=== PATIENT | male | born 1950 | race Caucasian/White ===

== ENCOUNTER → 2017-04-18 | Outpatient (CLI) | payer SELFPAY | END | disposition home or self-care (01) | LOC: YCFC.O 10:59 | DX: I10 Essential (primary) hypertension (principal) ==

== ENCOUNTER → 2018-06-06 | Outpatient (CLI) | payer MEDICARE | LOC: LAB.O 08:29 | PROVIDERS: ATTEND Family Medicine | DX: I10 Essential (primary) hypertension (principal); R35.1 Nocturia ==

== ENCOUNTER → 2019-06-09 | Outpatient (CLI) | payer MEDICARE | LOC: LAB.O 08:16 | PROVIDERS: ATTEND Family Medicine | DX: I10 Essential (primary) hypertension (principal); R97.20 Elevated prostate specific antigen [PSA]; R35.1 Nocturia; R53.83 Other fatigue; Z13.220 Encounter for screening for lipoid disorders ==

== ENCOUNTER → 2019-12-08 | Outpatient (CLI) | payer MEDICARE | LOC: LAB.O 09:01 | PROVIDERS: ATTEND Family Medicine | DX: R53.83 Other fatigue (principal); I10 Essential (primary) hypertension; R97.20 Elevated prostate specific antigen [PSA]; D51.1 Vitamin B12 deficiency anemia due to selective vitamin B12 malabsorption with proteinuria ==

== ENCOUNTER → 2019-12-22 | Outpatient (CLI) | payer MEDICARE | LOC: YCFC.O 08:29 | PROVIDERS: ATTEND Family Medicine | DX: I10 Essential (primary) hypertension (principal); R53.83 Other fatigue ==

== ENCOUNTER 2020-08-05 11:45 | Observation (INO) | payer MEDICARE ==
--- NOTE | 2020-08-05 11:46 | ED.PDOC ---
History of Present Illness - General Stated Complaint: Chest pain Time Seen by Provider: 08/05/20 11:46 Source: patient Exam Limitations: no limitations - History of Present Illness Initial Comments: Patient reported Lightheadedness and chest pain onset 1 hour ago while working up on a roof.The pain was located in the midsternal area and did not radiate. It was burning in nature. It lasted about 30 minutes and then has substantially subsided. Current discomfort is about 2/10 at present. Patient did not have any shortness of breath or diaphoresis. He did not have any slurred speech extremity weakness or Facial droop to suggest CVA. Patient has had a similar episode in the past but it was not formally evaluated by a photocopying equipment mechanic. He denies history of known coronary disease or diabetes he does have a history of hypertension. Patient notes he is taking magnesium supplements. His father from a heart attack. Timing/Duration: 1 hour Severity: moderate Improving Factors: nothing Worsening Factors: nothing Associated Symptoms: cough - Present and unchanged for the last 2 years. Not productiveAssociated with postnasal drip. Allergies/Adverse Reactions: Allergies Prednisone Allergy (Verified 11/18/15 00:06) Home Medications: Ambulatory Orders Lisinopril 20 mg PO DAILY 12/15/15 amLODIPine BESYLATE [Norvasc] 5 mg PO DAILY 12/15/15 Review of Systems - Review of Systems Constitutional: States: no symptoms reported EENTM: States: other - Chronic postnasal drip Respiratory: States: cough - Chronic mostly nonproductive cough Cardiology: States: see HPI Gastrointestinal/Abdominal: States: no symptoms reported Genitourinary: States: other - Chronic urinary retention requiring self- catheterization several times per day Musculoskeletal: States: no symptoms reported Skin: States: other - Chronic rash on both upper extremities present 20 years Neurological: States: other - Lightheadedness without syncope or focal deficit Endocrine: States: no symptoms reported Hematologic/Lymphatic: States: no symptoms reported All other Systems: Reviewed and Negative Past Medical History (General) - Patient Medical History Hx Seizures: No Hx Stroke: No Hx Dementia: No Hx Asthma: No Hx of COPD: No Hx Cardiac Disorders: No Hx Congestive Heart Failure: No Hx Pacemaker: No Hx Hypertension: Yes Hx Thyroid Disease: No Hx Diabetes: No Hx Gastroesophageal Reflux: Yes Hx Renal Disease: No Hx Cancer: Yes Hx of HIV: No Hx MRSA: No - Vaccination History Hx Tetanus, Diphtheria Vaccination: No Hx Influenza Vaccination: No Hx Pneumococcal Vaccination: No - Social History Hx Tobacco Use: Yes Hx Alcohol Use: No Hx Substance Use: No Hx Substance Use Treatment: No Hx Depression: No - Female History Patient : No Family Medical History - Family History Mother Living Status: Cause of : Colon cancer Hx Family Hypertension: Yes Hx Family Diabetes: Yes Hx Family Cancer: Yes Physical Exam - Physical Exam General Appearance: Alert, Comfortable Eye Exam: bilateral normal Ears, Nose, Throat: hearing grossly normal, normal ENT inspection Neck: non-tender, full range of motion Respiratory: chest non-tender, normal breath sounds Cardiovascular/Chest: normal peripheral pulses, regular rate, rhythm, no edema, no JVD Gastrointestinal/Abdominal: normal bowel sounds, non tender, soft Back Exam: normal inspection, no CVA tenderness, no vertebral tenderness Extremity: non-tender, no pedal edema, no calf tenderness 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 08/05/20 13:12 Blood pressure 179/112. Clonidine 0.2 mg p.o. ordered. All findings currently completed discussed with patient. Repeat cardiac enzymes ordered 2 hours after first specimen. 08/05/20 15:25 3:17 PM: Pulse 76, blood pressure 134/84, saturation 99% on room air. Discussed all findings with the patient. He is amenable to inpatient disposition to rule out potential coronary artery disease. 08/05/20 15:25 3:22 PM. Discussed this patient with nurse practitioner Roseline De Leon, on-call for [facility]: She is amenable to admitting this patient for an ED rule out with cardiology consultation as needed. 08/05/20 15:27Medical decision makin-year-old male with brief episode of chest pain resolving prior to admission. Patient has 2 electrocardiograms and troponins which are negative for KS. Patient does not have any serious dysrhythmia. Patient did present with elevated blood pressure which was managed In the Emergency department. Patient be admitted for an extended rule out and then cardiology consultation as indicated. He is low risk for acute KS and symptoms are likely due to his elevated blood pressure. 08/05/20 23:52 Patient had HEART score of 4. - Results/Orders Results/Orders: Electrocardiogram showed normal sinus rhythm, 74/min. Incomplete right bundle branch block with QRS duration 98 ms. No STT changes. No ST depression or elevation noted. EXAM DESCRIPTION: Chest,1 View CLINICAL HISTORY: 70 years Male, Chest pain COMPARISON: 05/05/2016 TECHNIQUE: Single view radiograph of the chest. IMPRESSION: Normal size cardiac silhouette. Partially calcified aorta. Bibasilar opacification, unchanged and probably represents chronic scarring or atelectasis. No pleural effusion or pneumothorax. Thoracic spondylosis. 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 Vital Signs - 24 hr 08/05/20 08/05/20 08/05/20 11:45 12:01 12:45 Temperature 97.3 F L 97.3 F L Pulse Rate 70 70 76 Pulse Rate [ 70 70 76 pulse ox] Respiratory 20 20 18 Rate Blood Pressure 175/105 152/98 [right arm] O2 Sat by Pulse 97 97 Oximetry 08/05/20 12:15 CARDIAC ENZYME GROUP Stat COMPLETE METABOLIC PROFILE Stat 08/05/20 12:30 EKG STAT 08/05/20 12:37 URINE CULTURE W/COLONY COUNT Stat Laboratory Results - last 24 hr 08/05/20 08/05/20 08/05/20 12:15 12:15 12:15 WBC 6.9 RBC 4.32 L Hgb 13.2 L Hct 40.2 L MCV 93.1 MCH 30.6 MCHC 32.9 L RDW 14.9 H Plt Count 224 MPV 9.8 Absolute Neuts (auto) 5.20 Absolute Lymphs (auto) 0.70 L Absolute Monos (auto) 0.80 Absolute Eos (auto) 0.10 Absolute Basos (auto) 0.10 Neutrophils % 75.5 Lymphocytes % 10.5 L Monocytes % 11.6 H Eosinophils % 1.5 Basophils % 0.9 Sodium 139 Potassium 4.4 Chloride 106 Carbon Dioxide 21 Anion Gap 16.4 Calcium 8.9 Magnesium 2.4 Alkaline Phosphatase 72 CK-MB (CK-2) 4.9 H* Troponin I < 0.02 Urine Color Urine Appearance Urine pH Ur Specific Candor Urine Protein Urine Glucose (UA) Urine Ketones Urine Blood Urine Nitrite Urine Bilirubin Urine Urobilinogen Ur Leukocyte Esterase Urine RBC Urine WBC Ur Epithelial Cells Amorphous Sediment Urine Bacteria Urine Mucus 08/05/20 12:37 WBC RBC Hgb Hct MCV MCH MCHC RDW Plt Count MPV Absolute Neuts (auto) Absolute Lymphs (auto) Absolute Monos (auto) Absolute Eos (auto) Absolute Basos (auto) Neutrophils % Lymphocytes % Monocytes % Eosinophils % Basophils % Sodium Potassium Chloride Carbon Dioxide Anion Gap Calcium Magnesium Alkaline Phosphatase CK-MB (CK-2) Troponin I Urine Color Yellow Urine Appearance Clear Urine pH 5.0 Ur Specific Candor 1.010 Urine Protein Negative Urine Glucose (UA) Negative Urine Ketones Negative Urine Blood Negative Urine Nitrite Negative Urine Bilirubin Negative Urine Urobilinogen 0.2 Ur Leukocyte Esterase Moderate H Urine RBC 0-1 Urine WBC 20-30 H Ur Epithelial Cells 10-20 Amorphous Sediment Trace Urine Bacteria 1+ Urine Mucus Trace Second electrocardiogram showed normal sinus rhythm, 66/min. Normal tracing without any acute abnormalities. Second set of cardiac enzymes negative, troponin less than 0.02. Rapid nasal swab for Covid negative. Departure - Departure Clinical Impression: Chest pain, Hypertension Disposition: Admit Patient Condition: Good Home Medications: Ambulatory Orders Lisinopril 20 mg PO DAILY 12/15/15 amLODIPine BESYLATE [Norvasc] 5 mg PO DAILY 12/15/15 Decision To Admit - Decistion To Admit Decision to Admit Date: 08/05/20 Decision to Admit Time: 15:24
[2020-08-05] MEDS ORDERED: ASPIRIN (CHEWABLE) 81 MG TAB PO ONE (12:00)
--- NOTE | 2020-08-05 12:47 | RAD ---
EXAM DESCRIPTION: Chest,1 View CLINICAL HISTORY: 70 years Male, Chest pain COMPARISON: 05/05/2016 TECHNIQUE: Single view radiograph of the chest. IMPRESSION: Normal size cardiac silhouette. Partially calcified aorta. Bibasilar opacification, unchanged and probably represents chronic scarring or atelectasis. No pleural effusion or pneumothorax. Thoracic spondylosis. 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
[2020-08-05] MEDS ORDERED: cloNIDine HCL 0.1 MG TAB ONE (13:12)
[2020-08-05] MEDS ORDERED: cloNIDine HCL 0.1 MG TAB PO ONE (13:12)
[2020-08-05] MEDS ORDERED: SODIUM CHLORIDE 0.9% (FLUSH) 10 ML SYG IV PRN (18:40)
[2020-08-05] MEDS ORDERED: ACETAMINOPHEN 325 MG TAB PO PRN (18:40)
[2020-08-05] MEDS ORDERED: NITROGLYCERIN 0.4 MG 25 EA TAB SL PRN (18:40)
[2020-08-05] MEDS ORDERED: MORPHINE SULFATE INJ 10 MG/ML VIAL IV PRN (18:40)
[2020-08-05] MEDS ORDERED: IV SET AND CAP CHANGE INJ INJ SCH (19:00)
[2020-08-05] MEDS: SODIUM CHLORIDE 0.9% (FLUSH) 10 ML SYG IV SCH (20:49)
[2020-08-05] MEDS ORDERED: ENOXAPARIN SODIUM 40 MG/0.4 ML SYG SUBCU SCH (21:00)
[2020-08-06] MEDS ORDERED: MELATONIN 3 MG TAB PO PRN (00:23)
[2020-08-06] MEDS ORDERED: PANTOPRAZOLE SODIUM IV 40 MG VIAL IV SCH (06:30)
[2020-08-06] MEDS ORDERED: ASPIRIN (ENTERIC COATED) 325 MG TAB PO ONE (06:53)
[2020-08-06] MEDS: SODIUM CHLORIDE 0.9% (FLUSH) 10 ML SYG IV SCH (08:25)
[2020-08-06] MEDS ORDERED: ASPIRIN TABLET 325 MG TAB PO SCH (09:00)
[2020-08-06] MEDS ORDERED: LISINOPRIL 10 MG TAB PO SCH (09:00)
[2020-08-06] MEDS ORDERED: amLODIPine BESYLATE 5 MG TAB PO SCH (09:00)
[2020-08-06 10:34] VITALS: O2SAT 99
--- NOTE | 2020-08-06 14:02 | US ---
EXAM DESCRIPTION: Carotid Duplex: ULTRASOUND. CLINICAL HISTORY: 70 years Male dizziness; chest pain. COMPARISON: None. TECHNIQUE: Transcutaneous scanning utilizing waggoner-scale and Doppler modes to evaluate the bilateral carotid systems and vertebral arteries. Percentage of diameter of stenosis or no stenosis recorded will be based upon NASCET criteria. FINDINGS: Peak systolic/end diastolic velocities (CM-Sec) CCA Right 74/18 Left bladder 43/25. ICA Right proximal 55/9, distal 71/27. Left proximal 39/13, Distal 67/21. Vertebral Right 38/11 Left 37/6. ECA (PS Only) Right 48 left 69. ICA/CCA peak systolic velocity ratio: Right 1.0 Left 0.5 ICA/CCA end diastolic velocity ratio: Right 1.5 Left 0.8 Vertebral arteries: antegrade flow. Comments: Minimal atherosclerotic calcification. IMPRESSION: 1. Doppler evaluation of the bilateral carotid systems and vertebral arteries shows no hemodynamically significant stenoses (less than 70%). 2. No significant amount of plaque in the carotid arteries bilaterally. Bilateral vertebral arteries showed antegrade-cephalad flow. Electronically signed by: Casey Peck MD 08/06/2020 2:00 PM [facility]
[2020-08-06] MEDS ORDERED: MECLIZINE HCL 12.5 MG TAB PO PRN (15:41)
[2020-08-06] MEDS ORDERED: BETAMETHASONE ACETATE/BETAMETH 6 MG/ML VIAL IM ONE (15:43)
[2020-08-06 16:13] VITALS: BP 136/71; TEMP 97.8
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
== END 2020-08-06 17:06 | disposition home or self-care (01) ==
LOC: ER 11:45 → MS 17:17
PROVIDERS: ADMIT Nurse Practitioner Acute Care; ATTEND Nurse Practitioner Acute Care
DX: R07.89 Other chest pain (principal); R42 Dizziness and giddiness; J32.9 Chronic sinusitis, unspecified; I10 Essential (primary) hypertension; N40.0 Benign prostatic hyperplasia without lower urinary tract symptoms; J30.2 Other seasonal allergic rhinitis; K21.9 Gastro-esophageal reflux disease without esophagitis; I45.10 Unspecified right bundle-branch block; Z20.822 Contact with and (suspected) exposure to COVID-19; Z87.820 Personal history of traumatic brain injury; Z79.899 Other long term (current) drug therapy; Z88.2 Allergy status to sulfonamides; Z88.8 Allergy status to other drugs, medicaments and biological substances; Z91.048 Other nonmedicinal substance allergy status; Z87.891 Personal history of nicotine dependence; Z85.9 Personal history of malignant neoplasm, unspecified; Z82.49 Family history of ischemic heart disease and other diseases of the circulatory system; Z80.0 Family history of malignant neoplasm of digestive organs; Z83.3 Family history of diabetes mellitus
CPT/HCPCS: 96374; 96372 ×2; J1650; A4216; 82553 ×4; 80053 ×2; 87086; 80061; 81001; 85025 ×2; 82550 ×4; 83735; 84484 ×4; 71045; 93880; 94760; 99285; 93306; 93005 ×4; G0378; 87635

== ENCOUNTER → 2020-08-17 | Outpatient (CLI) | payer MEDICARE | LOC: NM 08:54 | PROVIDERS: ATTEND Family Medicine | DX: R07.9 Chest pain, unspecified (principal) ==